=== PATIENT | female | born 2000 | race Caucasian/White ===

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

== ENCOUNTER 2022-01-09 21:03 | Emergency (ER) | payer OTHER ==
[~2022-01-09] VITALS: Ht 142.2 cm; Wt 47.7 kg
[2022-01-09] MEDS ORDERED: HYDR30CR39 TP (21:38)
[2022-01-09] MEDS ORDERED: EPIN0.3P3 IM (21:38)
[2022-01-09] MEDS ORDERED: DIPH25CA85 PO (21:38)
[2022-01-09 21:41] VITALS: BP 118/74
== END 2022-01-09 22:21 | disposition home or self-care (01) ==
LOC: EMS 21:17
DX: T63.441A Toxic effect of venom of bees, accidental (unintentional), initial encounter (principal); M41.9 Scoliosis, unspecified; M47.9 Spondylosis, unspecified; Q67.6 Pectus excavatum; Z87.448 Personal history of other diseases of urinary system; Z98.890 Other specified postprocedural states; Z91.030 Bee allergy status; Y92.89 Other specified places as the place of occurrence of the external cause
CPT/HCPCS: 99282; Z7502